=== PATIENT | female | born 1980 | race African-American/Black ===

== ENCOUNTER 2023-01-31 17:25 | Emergency (ER) | payer MEDICAID, OTHER ==
[~2023-01-31] VITALS: Ht 162.6 cm; Wt 56.8 kg
[2023-01-31 19:00] LABS: BASOPHILS % 0.3 % (0.0-2.0); EOSINOPHILS % 0.6 % (0.0-5.0); HEMATOCRIT. 26.7 % (36.0-48.0); HEMOGLOBIN. 8.8 g/dL (12.0-16.0); LYMPHOCYTES % 49.1 % (20.0-50.0); MEAN CORPUSCULAR HEMOGLOBIN 29.3 pg (28.0-32.0); MEAN CORPUSCULAR VOLUME 88.4 fL (81.0-99.0); MEAN PLATELET VOLUME 13.7 fl (7.4-10.4); RED BLOOD CELL COUNT 3.02 mill/uL (4.2-5.4); RED CELL DISTRIBUTION WIDTH 15.4 % (11.6-14.6)
[2023-01-31 19:38] LABS: CHLORIDE 104 mEq/L (98-107)
[2023-01-31 20:21] LABS: INR 1.1; PROTHROMBIN TIME 11.9 sec (9.6-11.0)
[2023-01-31] MEDS ORDERED: HYDROMORPHONE HCL/PF 2MG/ML CPJ IV ONE (21:45)
[2023-02-01] MEDS ORDERED: HYDROMORPHONE HCL/PF 2MG/ML CPJ IV ONE (00:15)
[2023-02-01 02:30] VITALS: BP 110/74
[2023-02-03 12:05] LABS: PLATELET 4 x1000/uL (130-400)
== END 2023-02-01 03:20 | disposition short-term general hospital (02) ==
LOC: ER 17:25
DX: S06.4XAA Epidural hemorrhage with loss of consciousness status unknown, initial encounter (principal); I49.9 Cardiac arrhythmia, unspecified; Z20.822 Contact with and (suspected) exposure to COVID-19; X58.XXXA Exposure to other specified factors, initial encounter; Y93.89 Activity, other specified; Y92.89 Other specified places as the place of occurrence of the external cause; Y99.8 Other external cause status
CPT/HCPCS: 36415; 70450; 80053; 85025; 85610; 86850; 86900; 86901; 87426; 93005; 96374; 96376; 99285; C9803; J1170; Z7610; P9034